=== PATIENT | female | born 1930 | race Caucasian/White ===

== ENCOUNTER → 2017-04-21 | Outpatient (CLI) | payer OTHER, MEDICAID ==
[2017-04-21 12:22] LABS: COLOR YELLOW; LEUKOCYTE ESTERASE,URINE 2+ (NEGATIVE); NITRITE,URINE POSITIVE (NEGATIVE)
[2017-04-21 12:39] LABS: WBC,URINE 50-182 /hpf (0-3)
[2017-04-21 12:40] LABS: BACTERIA 4+ /hpf (NONE SEEN)
== END ==
LOC: CRFLAB 12:17
PROVIDERS: ATTEND Internal Medicine
DX: R35.0 Frequency of micturition (principal)
CPT/HCPCS: 81003-PO; 81015-PO